=== PATIENT | female | born 1965 | race Caucasian/White ===

== ENCOUNTER 2019-09-11 21:32 | Inpatient (IN) | payer SELFPAY ==
[~2019-09-11] VITALS: Ht 167.6 cm; Wt 93.0 kg
[2019-09-11] MEDS ORDERED: KETOROLAC TROMETHAMINE 30 MG/ML VIAL IV STA (22:08)
[2019-09-11] MEDS ORDERED: ONDANSETRON HCL INJ 2MG/ML 2ML 2 MG/ML VIAL IV STA (22:08)
[2019-09-11] MEDS ORDERED: SODIUM CHLORIDE 0.9% 1000ML 1,000 ML IV ONE (22:15)
[2019-09-11 22:35] LABS: BASOPHILS % 0.3 % (0.0-1.0); EOSINOPHILS # (AUTO) 0.7 (0.0-0.4); EOSINOPHILS % 5.5 % (0.0-6.0); HEMOGLOBIN 14.6 g/dL (12.0-16.0); LYMPHOCYTES # (AUTO) 1.2 (1.0-3.2); LYMPHOCYTES % 9.5 % (18.0-39.1); MEAN CORPUSCULAR HEMOGLOBIN 29.8 pg (28-32); MEAN CORPUSCULAR HGB CONC 32.4 g/dL (31-35); MEAN CORPUSCULAR VOLUME 91.8 fL (81-99); MONOCYTES # (AUTO) 0.7 (0.2-0.8); MONOCYTES % 5.7 % (4.4-11.3); NEUTROPHILS # (AUTO) 9.7 (2.1-6.9); NEUTROPHILS % 78.7 % (38.7-80.0); PLATELET COUNT 225 x10e3/uL (140-360); RED CELL DISTRIBUTION WIDTH 13.6 % (11.7-14.4)
[2019-09-11 22:39] LABS: BILIRUBIN,URINE NEGATIVE (NEGATIVE); CLARITY,URINE CLEAR (CLEAR); COLOR,URINE YELLOW (YELLOW); KETONES,URINE NEGATIVE (NEGATIVE); LEUKOCYTE ESTERASE ,URINE NEGATIVE (NEGATIVE); NITRITE,URINE NEGATIVE (NEGATIVE); PROTEIN,URINE DIPSTICK NEGATIVE (NEGATIVE); URINE UROBILINOGEN 0.2 mg/dL (0.2 - 1)
[2019-09-11 22:51] LABS: ALANINE AMINOTRANSFERASE 16 IU/L (0-55); ALBUMIN 3.8 g/dL (3.5-5.0); ALKALINE PHOSPHATASE 128 IU/L (40-150); AMYLASE 81 U/L (25-125); ANION GAP 10.1 mmol/L (8-16); BLOOD UREA NITROGEN 17 mg/dL (7-26); BUN/CREATININE RATIO 20 (6-25); CALCIUM 9.8 mg/dL (8.4-10.2); CARBON DIOXIDE 30 mmol/L (22-29); CHLORIDE 103 mmol/L (98-107); CREATININE, SERUM 0.85 mg/dL (0.57-1.11); EST GLOMERULAR FILTRATION RATE > 60 ML/MIN (60-); GLUCOSE 128 mg/dL (74-118); LIPASE 40 U/L (8-78); POTASSIUM 4.1 mmol/L (3.5-5.1); SODIUM 139 mmol/L (136-145)
[2019-09-11 23:01] LABS: BACTERIA,URINE FEW /HPF; EPITHELIAL CELLS,URINE FEW /LPF; WBC,URINE (MAN) 0-5 /HPF (0-5)
--- NOTE | 2019-09-11 23:59 | Diagnostic Imaging Report ---
HISTORY: ^ruq pain ^[id number] ^2313 ^Y TECHNIQUE: Selected images from limited abdominal ultrasound provided for INTERPRETATION: COMPARISON: None. FINDINGS: Pancreas: Visualized portions are increased in echotexture suggestive of lipomatosis without mass or ductal dilatation. Liver: Measures 13.5 cm in sagittal plane. The echotexture is normal. No mass in the visualized portions. Portal Vein: Measures 1.2 cm. Proper directional flow on spectral Doppler interrogation. Intrahepatic bile ducts: Normal Gallbladder: Present and contracted. No sludge or gallstones. No pericholecystic fluid. Sonographic Lopez sign is negative. CBD: 0.4 cm. Right Kidney: 9.6 cm in greatest length. The echotexture is normal. There is no evidence for mass. There is no collecting system dilatation or evidence of obstruction. No renal calculi evident. No adjacent free fluid or fluid collections. Visualized IVC and aorta are normal. There is no free fluid. IMPRESSION: 1. Contracted gallbladder without evidence of gallstone or pericholecystic fluid. No biliary ductal dilatation. 2. Increased pancreas echotexture suggestive of lipomatosis. 3. The remainder of the visualized abdomen is normal. Signed by: Dr. Marco Davidson MD on 09/11/2019 11:56 PM
[2019-09-12] VITALS (7 sets, daily range): BP systolic 112–156; BP diastolic 72–91
--- NOTE | 2019-09-12 00:33 | Diagnostic Imaging Report ---
CT Abdomen And Pelvis with Intravenous Contrast INDICATION: Intermittent abdominal pain ^rlq pain ^[id number] ^2355 ^Y TECHNIQUE: Thin collimation axial images obtained from the diaphragm to the level of the pubic symphysis following the uneventful administration of 100 cc of low osmolar, nonionic intravenous contrast. Dose reduction techniques used: Automated exposure control, adjustment of the mAs and/or kVp according to patient size, standardized low-dose protocol, and/or iterative reconstruction technique. RADIATION DOSE: Total DLP: 631.75 mGy*cm Estimated effective dose: (DLP x 0.015 x size factor) mSv CTDIvol has been reviewed. It is below the limits set by the Radiation Protocol Committee (RPC). COMPARISON: Right upper quadrant ultrasound 2316 hours. ABDOMEN FINDINGS: Lung Bases: Clear. The visualized portions of the mediastinum are normal.. Liver: Normal attenuation. No evidence for mass. Gallbladder: Present and is contracted. No biliary ductal dilatation. Pancreas: Normal attenuation without mass or ductal dilatation. Spleen: Normal in size. No evidence of mass.. Adrenal Glands: No evidence for mass. Kidneys: Right: Normal enhancement. No soft tissue mass. No hydronephrosis. Left: Normal enhancement. No soft tissue mass. No hydronephrosis. Lymph Nodes: No lymphadenopathy. Aorta: Normal in diameter Celiac artery: Widely patent and normal in morphology. SMA: Widely patent and normal in morphology. TAYLOR: Patent. PELVIS FINDINGS: Bowel: Stomach: Distended with fluid but otherwise normal. Small Bowel: Circumferential mural thickening and adjacent inflammation of a 10 cm section of ileum in the right lower quadrant. The small bowel proximal to the mural thickening is distended with air and fluid but is not dilated. There is no clear transition point. Large Bowel: Normal in caliber with normal wall thickness. Mild to moderate burden of stool throughout. Appendix: Normal appendix. Bladder: Normal. The uterus is absent. No adnexal mass. Peritoneum/retroperitoneum: Small amount of free fluid. No loculated fluid collection. No free air. Soft tissues: Unremarkable Bones: No focal osseous lesions. IMPRESSION: 10 cm segment of mural thickening and associated inflammation of the ileum in the right lower quadrant. The differential is extensive and includes infectious etiologies as well as inflammatory bowel disease and ischemia. Ischemia is less likely due to patency of the aorta and mesenteric vasculature. There is distention of the small bowel proximal to the mural thickening suggestive of partial small bowel obstruction. No evidence of bowel perforation. Signed by: Dr. Marco Davidson MD on 09/12/2019 12:30 AM
[2019-09-12] MEDS ORDERED: BENZOCAINE/TETRACAINE/BUTAMBEN AERO SPRAY 56 GM CAN ONE (01:00)
[2019-09-12] MEDS ORDERED: MORPHINE SULFATE 2 MG/ML SYR 1ML IV PRN (01:00)
--- OUTSIDE RECORDS SUMMARY | 2019-09-12 01:08 | XMS REPORT ---
Author [facility] Address Unknown Phone Unavailable Care Team Providers Care Textile Screen Maker Name Role Phone Bari EDDY Unavailable Unavailable Problems This patient has no known problems. Allergies, Adverse Reactions, Alerts This patient has no known allergies or adverse reactions. Medications This patient has no known medications. Results Test Description Test Time Test Comments Text Results Atomic Results Result Comments CT ABDOMEN/PELVIS W 2019-09-12 00:21:00 [place] [address] Patient Name: VILLA ESTRADA MR #: [id number] : 1965 Age/Sex: 54/F Req #: [id number] Adm Physician: Ordered by: ADELINE EDDY MD Report #: [id number] Location: ER Room/Bed: Procedure: [id number] CT/CT ABDOMEN/PELVIS W Exam Date: 09/12/19 Exam Time: 5 REPORT STATUS: Signed CT Abdomen And Pelvis with Intravenous Contrast INDICATION: Intermittent abdominal pain rlq pain [id number] 2355 Y TECHNIQUE: Thin collimation axial images obtained from the diaphragm to the level of the pubic symphysis following the uneventful administration of 100 cc of low osmolar, nonionic intravenous contrast. Dose reduction techniques used: Automated exposure control, adjustment of the mAs and/or kVp according to patient size, standardized low-dose protocol, and/or iterative reconstruction technique. RADIATION DOSE: Total DLP: 631.75 mGy*cm Estimated effective dose: (DLP x 0.015 x size factor) mSv CTDIvol has been reviewed. It is below the limits set by the Radiation Protocol Committee (RPC). COMPARISON: Right upper quadrant ultrasound 2316 hours. ABDOMEN FINDINGS: Lung Bases: Clear. The visualized portions of the mediastinum are normal.. Liver: Normal attenuation. No evidence for mass. Gallbladder: Present and is contracted. No biliary ductal dilatation. Pancreas: Normal attenuation without mass or ductal dilatation. Spleen: Normal in size. No evidence of mass.. Adrenal Glands: No evidence for mass. Kidneys: Right: Normal enhancement. No soft tissue mass. No hydronephrosis. Left: Normal enhancement. No soft tissue mass. No hydronephrosis. Lymph Nodes: No lymphadenopathy. Aorta: Normal in diameter Celiac artery: Widely patent and normal in morphology. SMA: Widely patent and normal in morphology. TAYLOR: Patent. PELVIS FINDINGS: Bowel: Stomach: Distended with fluid but otherwise normal. Small Bowel: Circumferential mural thickening and adjacent inflammation of a 10 cm section of ileum in the right lower quadrant. The small bowel proximal to the mural thickening is distended with air and fluid but is not dilated. There is no clear transition point. Large Bowel: Normal in caliber with normal wall thickness. Mild to moderate burden of stool throughout. Appendix: Normal appendix. Bladder: Normal. The uterus is absent. No adnexal mass. Peritoneum/retroperitoneum: Small amount of free fluid. No loculated fluid collection. No free air. Soft tissues: Unremarkable Bones: No focal osseous lesions. IMPRESSION: 10 cm segment of mural thickening and associated inflammation of the ileum in the right lower quadrant. The d ifferential is extensive and includes infectious etiologies as well as inflammatory bowel disease and ischemia. Ischemia is less likely due to patency of the aorta and mesenteric vasculature. There is distention of the small bowel proximal to the mural thickening suggestive of partial small bowel obstruction. No evidence of bowel perforation. Signed by: Dr. Stef Davidson MD on 09/12/2019 12:30 AM Dictated By: STEF DAVIDSON MD Transcribed By: JOE on 09/12/1929 COPY TO: ADELINE EDDY MD GALLBLADDER 2019-09-11 23:54:00 [place] [address] Patient Name: VILLA ESTRADA MR #: [id number] : 1965 Age/Sex: 54/F Req #: [id number] Adm Physician: Ordered by: ADELINE EDDY MD Report #: [id number] Location: ER Room/Bed: Procedure: [id number] US/US GALLBLADDER Exam Date: 09/11/19 Exam Time: 2312 REPORT STATUS: Signed HISTORY: ruq pain [id number] Y TECHNIQUE: Selected images from limited abdominal ultrasound provided for INTERPRETATION: COMPARISON: None. FINDINGS: Pancreas: Visualized portions are increased in echotexture suggestive of lipomatosis without mass or ductal dilatation. Liver: Measures 13.5 cm in sagittal plane. The echotexture is normal. No mass in the visualized portions. Portal Vein: Measures 1.2 cm. Proper directional flow on spectral Doppler interrogation. Intrahepatic bile ducts: Normal Gallbladder: Present and contracted. No sludge or gallstones. No pericholecystic fluid. Sonographic Lopez sign is negative. CBD: 0.4 cm. Right Kidney: 9.6 cm in greatest length. The echotexture is normal. There is no evidence for mass. There is no collecting system dilatation or evidence of obstruction. No renal calculi evident. No adjacent free fluid or fluid collections. Visualized IVC and aorta are normal. There is no free fluid. IMPRESSION: 1. Contrac maritza gallbladder without evidence of gallstone or pericholecystic fluid. No biliary ductal dilatation. 2. Increased pancreas echotexture suggestive of lipomatosis. 3. The remainder of the visualized abdomen is normal. Signed by: Dr. Stef Davidson MD on 09/11/2019 11:56 PM Dictated By: STEF DAVIDSON MD 55 Transcribed By: JOE on 09/11/192355 COPY TO: ADELINE EDDY MD
[2019-09-12] MEDS: PIPER-TAZ 3.375 GM 50 ML IV SCH ×4 (01:59→21:17)
[2019-09-12] MEDS: SODIUM CHLORIDE 0.9% 1000ML 1,000 ML IV SCH ×3 (02:00→16:50)
--- NOTE | 2019-09-12 02:30 | NUR ---
Received patient from ER via stretcher. AAOx3, resp even and unlabored. Noted NGT to R nare connect to LIWS. Minimal amt of dark brown drainage. Denies n/v or pain at this time. Call light within reach and instructed to call for assistance. Patient verbalized understanding.
[2019-09-12] MEDS: METRONIDAZOLE 500MG/NS 100ML 100 ML IV SCH ×5 (03:16→23:10)
[2019-09-12] MEDS ORDERED: ACETAMINOPHEN 325 MG SUPP PR PRN (04:45)
[2019-09-12] MEDS ORDERED: ONDANSETRON HCL INJ 2MG/ML 2ML 2 MG/ML VIAL IV PRN (04:45)
[2019-09-12] MEDS ORDERED: HYDRALAZINE HCL 20 MG/ML VIAL IV PRN (04:45)
[2019-09-12] MEDS ORDERED: IOPAMIDOL 370 MG/ML 200 ML INFUS..BTL INJ ONE (05:30)
[2019-09-12] MEDS ORDERED: SODIUM CHLORIDE 0.9% 50ML 50 ML ONE (05:30)
[2019-09-12] MEDS: PANTOPRAZOLE 40 MG 10ML VIAL IV SCH (08:00)
[2019-09-12] MEDS: ACETAMINOPHEN 1000 MG/100 ML IV PRN (08:00)
--- NOTE | 2019-09-12 12:59 | NUR ---
Handoff report rec'd at bedside for continuity of care.
--- NOTE | 2019-09-12 13:10 | NUR ---
Nutrition Screen Note RD Recommendation for Physician: Initiate a Po diet when medically feasible Plan of Care: RD following, monitoring for tolerance and adequacy Nutrition reason for involvement: Nutrition Risk Trigger - MST Primary Diagnose(s): Colitis, SBO PMH: None Ht:66 in Wt:192lb BMI:31 kg/m2 IBW:130lb +/-10% RD Assessment: (09/12/2019) Chart reviewed. Labs and meds reviewed. Initial encounter with patient. Unable to obtain a nutrition Hx at time of visit from Pt as pt was resting. Pt with a NGT to LIWS - GI output noted. NS infusing at 125ml/hr. ED notes reviewed. Pt without any significant medical Hx prior DIRECTOR CLINICAL OPERATIONS. No H&P dictated at this time. Current Diet: NPO Malnutrition Evaluation (09/12/2019) The patient does not meet criteria for a specified degree of malnutrition at this time. Will re-evaluate at follow-up as appropriate. Diet Education Needs Assessment: Diet education not indicated. Nutrition Care Level: Moderate Signed: Obinna Montoya RD, LD, [facility]
--- NOTE | 2019-09-12 14:15 | Diagnostic Imaging Report ---
EXAM: ABDOMEN-1VIEW (KUB), DATE: 09/12/2019 7:00 PM INDICATION: Colitis. Small bowel obstruction. COMPARISON: None FINDINGS: LINES/TUBES: NG/orogastric tube with distal tip projected on the gastric fundus. BOWEL PATTERN: No evidence for obstruction. SOFT TISSUES: Small phleboliths projected on the lower pelvis.. LUNG BASES: Not included. BONES: No acute findings. IMPRESSION: Nonobstructive bowel gas pattern. Signed by: Dr. Jorge Murillo M.D. on 09/12/2019 2:11 PM
--- NOTE | 2019-09-12 15:33 | Consultation ---
DATE OF CONSULTATION: HISTORY OF PRESENT ILLNESS: Ms. Gardiner is a 54-year-old lady with no significant past medical history, who takes no medication at home. She was in good health except for intermediate chest pain that she has not sought any help for. A day before admission, she started having started 1st intermittent epigastric and right upper and right lower quadrant pain. Over time, progressively become more steady, crampy, felt as if she was in labor, severe, associated with some nausea. No vomiting. No fever. She came to the emergency room and was admitted. She denied any trouble in her bowel movement recently. She denied seeing any blood or melena. She denied any change in bowel habit. No heartburn. No acid reflux. No symptoms of indigestion and no weight loss. In the emergency room, CT scan of the abdomen and pelvic revealed a 10 cm stricture of the terminal ileum, suggestive of either an infectious process or inflammatory process such as inflammatory bowel disease. Ischemia is less likely because all the vessels are patent and no signs of any arthrosclerotic disease, malignancy also a possibility. She was placed on NG suction and she was placed on IV antibiotic and placed on n.p.o. and I was asked to see her for management. She has a strong family history of colon cancer. Her mom had colon cancer. Her father had colon cancer. Also, her sister had ovarian cancer and breast cancer. Her last colonoscopy she reports to be many years ago, she cannot remember. She denied using nonsteroidal anti-inflammatory drugs regularly. PAST MEDICAL HISTORY: Insignificant. She has had hepatitis C in the past, which was treated according to her and resolved. PAST SURGICAL HISTORY: She had hysterectomy in the past and she had some kind of skin surgery underneath her left arm for some skin infection. SOCIAL HISTORY: She does not smoke or drink. HOME MEDICINE: Nil. PHYSICAL EXAMINATION: GENERAL: Awake, alert, oriented, hemodynamically stable. Afebrile. HEENT: Normal sclerae. NECK: Supple. No node or mass. LUNGS: Clear to auscultation. HEART: Regularly irregular rhythm. ABDOMEN: Soft, nontender. No acute sign. No mass, no organomegaly, not distended. CENTRAL NERVOUS SYSTEM: Motor function goes intact. EXTREMITIES: No edema. LABORATORY DATA: White cell count is 12, hemoglobin 14, hematocrit 45, platelets 225. BUN, creatinine normal. Sodium, potassium normal. Calcium 9.8. Liver function normal. Amylase, lipase normal. Albumin normal. Total protein normal. Urinalysis normal. IMPRESSION: Probably inflammatory bowel disease, less likely an infection process, taking into account her clinical presentation, malignancy still need to be ruled out. Today is doing fine on her current management. We will continue her n.p.o. Continue NG suction. Continue the IV antibiotic. Tomorrow, we may try to pull the NG suction, start on liquid diet. She needs to have colonoscopy with terminal ileum intubation and biopsy. We will check stool for calprotectin. We will check her serum reactive protein and we will monitor. As far as the chest pain that she is being complaining about in the past, I will leave it to her primary care to work it up or obtain Cardiology consult. Charissa Figueroa MD RD/MODL /[id number]
[2019-09-13] VITALS (7 sets, daily range): BP systolic 119–138; BP diastolic 66–83
[2019-09-13] MEDS: SODIUM CHLORIDE 0.9% 1000ML 1,000 ML IV SCH ×4 (01:00→19:55)
[2019-09-13 04:27] LABS: BASOPHILS # (AUTO) 0.1 (0.0-0.1); BASOPHILS % 0.5 % (0.0-1.0); EOSINOPHILS # (AUTO) 0.9 (0.0-0.4); EOSINOPHILS % 9.3 % (0.0-6.0); HEMATOCRIT 39.6 % (34.2-44.1); HEMOGLOBIN 13.1 g/dL (12.0-16.0); LYMPHOCYTES # (AUTO) 1.8 (1.0-3.2); LYMPHOCYTES % 19.4 % (18.0-39.1); MEAN CORPUSCULAR HEMOGLOBIN 30.2 pg (28-32); MEAN CORPUSCULAR HGB CONC 33.1 g/dL (31-35); MEAN CORPUSCULAR VOLUME 91.2 fL (81-99); MONOCYTES # (AUTO) 0.7 (0.2-0.8); MONOCYTES % 7.6 % (4.4-11.3); NEUTROPHILS # (AUTO) 5.8 (2.1-6.9); PLATELET COUNT 192 x10e3/uL (140-360); RED BLOOD COUNT 4.34 x10e6/uL (3.6-5.1); RED CELL DISTRIBUTION WIDTH 13.7 % (11.7-14.4)
[2019-09-13 04:30] LABS: ALANINE AMINOTRANSFERASE 12 IU/L (0-55); ALBUMIN 3.3 g/dL (3.5-5.0); ALKALINE PHOSPHATASE 103 IU/L (40-150); BLOOD UREA NITROGEN 14 mg/dL (7-26); BUN/CREATININE RATIO 18 (6-25); CALCIUM 8.9 mg/dL (8.4-10.2); CARBON DIOXIDE 22 mmol/L (22-29); CHLORIDE 108 mmol/L (98-107); CREATININE, SERUM 0.77 mg/dL (0.57-1.11); EST GLOMERULAR FILTRATION RATE > 60 ML/MIN (60-); GLUCOSE 74 mg/dL (74-118); SODIUM 141 mmol/L (136-145)
[2019-09-13] MEDS: PIPER-TAZ 3.375 GM 50 ML IV SCH ×3 (04:30→21:38)
[2019-09-13] MEDS: METRONIDAZOLE 500MG/NS 100ML 100 ML IV SCH ×4 (05:30→23:30)
[2019-09-13] MEDS: ONDANSETRON HCL INJ 2MG/ML 2ML 2 MG/ML VIAL IV PRN (06:22)
[2019-09-13] MEDS: ACETAMINOPHEN 1000 MG/100 ML IV PRN ×3 (06:44→22:20)
--- NOTE | 2019-09-13 06:47 | Diagnostic Imaging Report ---
Two view abdomen series. CPT 98764 CLINICAL HISTORY: Small bowel obstruction TECHNIQUE: Flat and upright views of the abdomen obtained. COMPARISON: Abdomen series 09/12/2019. Medical Devices: Enteric tube terminates in the proximal stomach Bowel: Unremarkable bowel gas pattern. No dilated bowel loops. No air-fluid levels Calcifications: None over the renal shadows or along the expected course of the ureters Organomegaly: None Free air: None Lung bases: Clear Bones: Unremarkable IMPRESSION: Unremarkable bowel gas pattern. Enteric tube as described above. Signed by: Dr. Marco Davidson MD on 09/13/2019 6:43 AM
--- NOTE | 2019-09-13 07:00 | NUR ---
RECEIVED PATIENT RESTING IN BED NO S/S OF DISTRESS. BED LOW, WHEELS LOCKED, SIDE RAILS X2. CALL LIGHT IN REACH WILL CONTINUE TO MONITOR PATIENT.
[2019-09-13] MEDS: LORATADINE 10 MG TAB PO SCH (08:21)
[2019-09-13] MEDS: PANTOPRAZOLE 40 MG 10ML VIAL IV SCH (08:48)
--- NOTE | 2019-09-13 11:15 | NUR ---
PATIENT A/O X3, EVEN RESPIRATIONS ON RA. LUNG SOUNDS CLEAR TO AUSCULTATION. NGT TO RIGHT NARE LIWS. VS STABLE. RIGHT HAND 20 GAUGE IV WITH NS @ 125 CC/HR. PATIENT AMBULATES INDEPENDENTLY. CALL LIGHT IN REACH WILL CONTINUE TO MONITOR PATIENT.
--- NOTE | 2019-09-13 13:02 | Progress Note ---
DATE: SUBJECTIVE: Ms. Gardiner came to the hospital with acute onset of abdominal pain. She was found to have a stricture in her terminal ileum on the CT scan of the abdomen, felt to be either an infectious or inflammatory process such as inflammatory bowel disease. Of course, malignancy also needs to be ruled out. She is still on NG suction, still bringing some fluid into the canister. She is awake, alert, complaining of mild headache. No abdominal discomfort. PHYSICAL EXAMINATION: VITAL SIGNS: She is afebrile. GENERAL: Awake, alert, oriented, hemodynamically stable. ABDOMEN: Soft and nontender. LABORATORY DATA: CBC normal. Comprehensive panel normal. PLAN: My plan today is to continue NG suction, perhaps we will consider to stop it tomorrow. We will check her sedimentation rate, check her calprotectin in the stool, check her serum reactive protein. Continue the antibiotic and we will plan for colonoscopy with terminal ileum viewing and biopsy. Charissa Figueroa MD RD/ZACARIAS /[id number]
[2019-09-13] MEDS: BISACODYL 10 MG SUPP PR SCH (21:38)
[2019-09-14] VITALS (8 sets, daily range): BP systolic 114–138; BP diastolic 57–77
[2019-09-14 03:19] LABS: BASOPHILS % 0.3 % (0.0-1.0); EOSINOPHILS # (AUTO) 0.5 (0.0-0.4); EOSINOPHILS % 4.9 % (0.0-6.0); HEMOGLOBIN 13.1 g/dL (12.0-16.0); LYMPHOCYTES # (AUTO) 1.9 (1.0-3.2); LYMPHOCYTES % 19.8 % (18.0-39.1); MEAN CORPUSCULAR HEMOGLOBIN 30.3 pg (28-32); MEAN CORPUSCULAR HGB CONC 32.8 g/dL (31-35); MEAN CORPUSCULAR VOLUME 92.4 fL (81-99); MONOCYTES # (AUTO) 0.8 (0.2-0.8); MONOCYTES % 8.2 % (4.4-11.3); NEUTROPHILS # (AUTO) 6.4 (2.1-6.9); NEUTROPHILS % 66.6 % (38.7-80.0); PLATELET COUNT 188 x10e3/uL (140-360); RED BLOOD COUNT 4.33 x10e6/uL (3.6-5.1); RED CELL DISTRIBUTION WIDTH 13.2 % (11.7-14.4)
[2019-09-14 03:31] LABS: ANION GAP 16.9 mmol/L (8-16); BLOOD UREA NITROGEN 14 mg/dL (7-26); BUN/CREATININE RATIO 19 (6-25); CALCIUM 8.9 mg/dL (8.4-10.2); CARBON DIOXIDE 19 mmol/L (22-29); CHLORIDE 104 mmol/L (98-107); CREATININE, SERUM 0.73 mg/dL (0.57-1.11); EST GLOMERULAR FILTRATION RATE > 60 ML/MIN (60-); GLUCOSE 69 mg/dL (74-118); POTASSIUM 3.9 mmol/L (3.5-5.1); SODIUM 136 mmol/L (136-145)
[2019-09-14] MEDS: METRONIDAZOLE 500MG/NS 100ML 100 ML IV SCH ×4 (05:26→16:28)
[2019-09-14] MEDS: PIPER-TAZ 3.375 GM 50 ML IV SCH ×3 (05:27→22:00)
[2019-09-14] MEDS ORDERED: METRONIDAZOLE500 MG PO (05:39)
[2019-09-14] MEDS ORDERED: CIPRO500 MG PO (05:39)
[2019-09-14] MEDS ORDERED: ULTRAM 50MG50 MG PO (05:40)
[2019-09-14] MEDS ORDERED: MIRALAX17 GM PO (05:42)
[2019-09-14] MEDS: ONDANSETRON HCL INJ 2MG/ML 2ML 2 MG/ML VIAL IV PRN (06:38)
--- NOTE | 2019-09-14 06:44 | NUR ---
SPOKE LAVERNE MULLINS SMALL MACHINE BINDERY OPERATOR REGARDING PATIENT C/O RIGHT ABDOMINAL PAIN, NAUSEA AND VOMITING. NEW ORDER RECEIVED TO KEEP NGT AND REPEAT CT ABDOMEN/PELVIS WITH CONTRAST.
[2019-09-14] MEDS ORDERED: PROMETHAZINE 12.5MG/ NACL 0.9% 12.5 MG/50 ML BAG IV PRN (06:45)
--- NOTE | 2019-09-14 07:10 | NUR ---
Received patient mid fowlers position, side rails upx2, call light within reach. C/o nausea. Right nare NG tube on intermittent suction draining green drainage. Provided patient with emesis bag. Instructed to use call light for assistance. Will continue to monitor.
[2019-09-14] MEDS: PANTOPRAZOLE 40 MG 10ML VIAL IV SCH (07:39)
[2019-09-14] MEDS: BISACODYL 10 MG SUPP PR SCH (07:39)
--- NOTE | 2019-09-14 07:40 | NUR ---
patient nauseated and vomiting clear phlegm. c/o right abdominal pain radiating to right shoulder. See orders
[2019-09-14] MEDS: ACETAMINOPHEN 1000 MG/100 ML IV PRN (08:05)
[2019-09-14] MEDS: LORATADINE 10 MG TAB PO SCH (09:00)
[2019-09-14] MEDS ORDERED: DIATRIZOATE MEGL/DIATRIZOA SOD 30 ML BTL PO ONE (09:02)
--- NOTE | 2019-09-14 13:30 | NUR ---
NG tube removed as ordered. Patient tolerated well.
--- NOTE | 2019-09-14 13:57 | Diagnostic Imaging Report ---
EXAM: CT Abdomen and Pelvis WITH intravenous contrast INDICATION: Colitis, small bowel obstruction COMPARISON: KUB of 09/12/2019, CT abdomen and pelvis of 09/12/2019 TECHNIQUE: Abdomen and pelvis were scanned utilizing a multidetector helical scanner from the lung base to the pubic symphysis after administration of IV contrast. Coronal and sagittal reformations were obtained. Routine protocol was performed. Scan was performed during portal venous phase. IV CONTRAST: 100mL of Isovue 370 ORAL CONTRAST: Gastrografin RADIATION DOSE: Total DLP: 749.8 mGy*cm Dose modulation, iterative reconstruction, and/or weight based adjustment of the mA/kV was utilized to reduce the radiation dose to as low as reasonably achievable. FINDINGS: LINES/TUBES: Enteric tube terminates in the stomach. LOWER THORAX: Minimal bibasilar dependent subsegmental atelectasis. HEPATOBILIARY: Diffuse hepatic steatosis. No focal liver lesion. No biliary ductal dilation. Unremarkable gallbladder. SPLEEN: No splenomegaly. PANCREAS: No focal masses or ductal dilatation. ADRENALS: No adrenal nodules. KIDNEYS/URETERS: No hydronephrosis, stones, or solid mass lesions. PELVIC ORGANS/BLADDER: Status post hysterectomy. PERITONEUM / RETROPERITONEUM: No free air or fluid. LYMPH NODES: No lymphadenopathy. VESSELS: Unremarkable. GI TRACT: Interval resolution of previously seen thickened loop of small bowel in the right anterior pelvis. There is now no abnormal bowel wall thickening. No bowel obstruction. Normal appendix. BONES AND SOFT TISSUES: No acute osseous injury. No suspicious lytic or blastic lesions. IMPRESSION: Interval resolution of previously seen thickened loop of small bowel in the right anterior pelvis. No bowel obstruction. Diffuse hepatic steatosis. Signed by: Michelle Anderson MD on 09/14/2019 1:53 PM
[2019-09-14] MEDS ORDERED: SODIUM CHLORIDE 0.9% 250ML 250 ML ONE (15:38)
[2019-09-14] MEDS ORDERED: SODIUM CHLORIDE 0.9% 50ML 50 ML ONE (17:43)
[2019-09-14] MEDS ORDERED: IOPAMIDOL 370 MG/ML 200 ML INFUS..BTL INJ ONE (17:43)
--- NOTE | 2019-09-14 18:09 | NUR ---
Per Dr.J Lama patient cleared to discharge
[2019-09-14] MEDS ORDERED: HYDROCODONE/APAP 5MG-325MG TAB PO PRN (18:15)
--- NOTE | 2019-09-14 18:34 | NUR ---
Resting in bed, side rails upx2, call light within reach. AAOX3 to time, person, place. Respirations even and unlabored. Denies nausea. Report to be given to oncoming nurse of patient's status.
--- NOTE | 2019-09-14 19:00 | NUR ---
Completed rounding with morning nurse. Pt alert and orient to name. Pt lying in bed HOB 45 degrees. Denies pain at this time. Will continue to monitor.
[2019-09-14] MEDS ORDERED: CITRATE OF MAGNESIA 300ML BOTTLE PO ONE (19:15)
--- NOTE | 2019-09-14 19:28 | Progress Note ---
DATE: Ms. Gardiner came with an episode of abdominal pain. She was found to have stricture in her terminal ileum, felt either to due to infection or inflammatory bowel disease. She is progressing nicely. She feeling better today. Her NG tube has been stopped. She was started on a diet today. She is awake, alert, oriented, hemodynamically stable. Her only complaint today is excessive watery bowel movement. Her lab test ESR 17. Serum reactive protein pending. Stool calprotectin is pending. Electrolytes; sodium, potassium, BUN and creatinine normal. CBC normal. My plan for her today is to perform a colonoscopy with reviewing of her terminal ileum and to do stool study. She is maintained on Flagyl and Protonix. Charissa Figueroa MD RD/MODL /[id number]
[2019-09-15] VITALS (8 sets, daily range): BP systolic 105–152; BP diastolic 61–90
[2019-09-15 04:53] LABS: BASOPHILS # (AUTO) 0.1 (0.0-0.1); BASOPHILS % 0.7 % (0.0-1.0); EOSINOPHILS # (AUTO) 0.5 (0.0-0.4); HEMOGLOBIN 12.7 g/dL (12.0-16.0); LYMPHOCYTES # (AUTO) 1.7 (1.0-3.2); LYMPHOCYTES % 22.3 % (18.0-39.1); MEAN CORPUSCULAR HEMOGLOBIN 30.3 pg (28-32); MEAN CORPUSCULAR HGB CONC 33.4 g/dL (31-35); MEAN CORPUSCULAR VOLUME 90.7 fL (81-99); MONOCYTES # (AUTO) 0.6 (0.2-0.8); MONOCYTES % 8.4 % (4.4-11.3); NEUTROPHILS # (AUTO) 4.7 (2.1-6.9); NEUTROPHILS % 62.3 % (38.7-80.0); PLATELET COUNT 194 x10e3/uL (140-360); RED BLOOD COUNT 4.19 x10e6/uL (3.6-5.1); RED CELL DISTRIBUTION WIDTH 13.4 % (11.7-14.4)
[2019-09-15 05:14] LABS: ANION GAP 13.3 mmol/L (8-16); BLOOD UREA NITROGEN 8 mg/dL (7-26); BUN/CREATININE RATIO 11 (6-25); CALCIUM 8.9 mg/dL (8.4-10.2); CARBON DIOXIDE 21 mmol/L (22-29); CHLORIDE 108 mmol/L (98-107); CREATININE, SERUM 0.75 mg/dL (0.57-1.11); EST GLOMERULAR FILTRATION RATE > 60 ML/MIN (60-); GLUCOSE 118 mg/dL (74-118); POTASSIUM 3.3 mmol/L (3.5-5.1); SODIUM 139 mmol/L (136-145)
[2019-09-15] MEDS: METRONIDAZOLE 500MG/NS 100ML 100 ML IV SCH ×4 (05:30→16:20)
[2019-09-15] MEDS: PIPER-TAZ 3.375 GM 50 ML IV SCH ×3 (06:33→22:00)
--- NOTE | 2019-09-15 06:50 | NUR ---
Rounded with morning nurse. Pt alert and orient to name. Pt lying in bed HOB 75 degrees. Denies pain at this time.
[2019-09-15] MEDS ORDERED: POTASSIUM CHLORIDE 20 MEQ TAB CR PO STA (08:20)
[2019-09-15] MEDS ORDERED: CITRATE OF MAGNESIA 300ML BOTTLE PO ONE (08:30)
[2019-09-15] MEDS: PANTOPRAZOLE 40 MG 10ML VIAL IV SCH (08:35)
[2019-09-15] MEDS: LORATADINE 10 MG TAB PO SCH (08:35)
[2019-09-15 08:42] LABS: C DIFFICILE TOXIN A&B AMP PROB NEGATIVE (NEGATIVE); WBC,FECAL (FECAL LACTOFERRIN) NEGATIVE (NEGATIVE)
[2019-09-15] MEDS ORDERED: POTASSIUM CHLORIDE 20 MEQ TAB CR PO ONE (12:30)
--- NOTE | 2019-09-15 13:26 | NUR ---
Spoke with Dr. Figueroa regarding plan for colonoscopy and whether pt could have it done as outpatient. Informed Dr. Figueroa of Dr. Lama's note that pt can go home on abx and follow up with colonoscopy in [address] Figueroa states that pt has stricture in her terminal ileum and he's looking for possible tumor vs Crohn's. states that he needs to do colonoscopy while pt is inpatient and if pt has a tumor, she will need surgery and if she has crohn's, she will need to be put on medications. Plan for colonoscopy tomorrow.
--- NOTE | 2019-09-15 15:59 | Progress Note ---
DATE: SUBJECTIVE: Ms. Gardiner came with abdominal pain. She was found to have a stricture in terminal ileum of unclear etiology, responded well to conservative approach. Right now, she is maintained on liquid diet, tolerating it well. OBJECTIVE: GENERAL: She is awake, alert, oriented, afebrile. ABDOMEN: Soft, nontender. LABORATORY DATA: Hemoglobin and hematocrit are normal. White cell count normal. ESR normal. Serum reactive protein pending. Stool for calprotectin pending. Stool for lactoferrin is negative and stool for C diff is negative. ASSESSMENT AND PLAN: She will be going for colonoscopy and hopefully to biopsy to determine the ileum to rule out malignancy tomorrow, then she can be discharged home. Charissa Figueroa MD RD/MODL /[id number]
[2019-09-15] MEDS ORDERED: PEG (High)/E-LYTE SOLN 4,000 ML BTL PO NR (18:00)
--- NOTE | 2019-09-15 19:00 | NUR ---
Rounded with morning nurse. Pt alert and orient to name. Pt lying in bed HOB 90 degrees. Bowel urgency hurried to toilet bowels liquid yellow. Denies pain at this time. Will continue to monitor.
--- NOTE | 2019-09-15 19:05 | NUR ---
Report given to oncoming nurse of patient's status. Resting in bed, side rails upx2, call light within reach. No s/s of acute distress noted.
[2019-09-15] MEDS ORDERED: SODIUM CHLORIDE 0.9% 250ML 250 ML ONE (21:46)
[2019-09-16] VITALS (8 sets, daily range): BP systolic 109–154; BP diastolic 58–90
[2019-09-16] MEDS: METRONIDAZOLE 500MG/NS 100ML 100 ML IV SCH ×5 (05:00→23:08)
[2019-09-16 05:03] LABS: BASOPHILS # (AUTO) 0.1 (0.0-0.1); BASOPHILS % 0.9 % (0.0-1.0); EOSINOPHILS # (AUTO) 0.5 (0.0-0.4); EOSINOPHILS % 6.8 % (0.0-6.0); HEMATOCRIT 38.3 % (34.2-44.1); HEMOGLOBIN 12.7 g/dL (12.0-16.0); LYMPHOCYTES # (AUTO) 1.7 (1.0-3.2); LYMPHOCYTES % 23.2 % (18.0-39.1); MEAN CORPUSCULAR HEMOGLOBIN 29.8 pg (28-32); MEAN CORPUSCULAR HGB CONC 33.2 g/dL (31-35); MEAN CORPUSCULAR VOLUME 89.9 fL (81-99); MONOCYTES # (AUTO) 0.8 (0.2-0.8); NEUTROPHILS # (AUTO) 4.4 (2.1-6.9); NEUTROPHILS % 58.7 % (38.7-80.0); PLATELET COUNT 188 x10e3/uL (140-360); RED BLOOD COUNT 4.26 x10e6/uL (3.6-5.1); RED CELL DISTRIBUTION WIDTH 13.5 % (11.7-14.4)
[2019-09-16 05:26] LABS: ANION GAP 13.2 mmol/L (8-16); BLOOD UREA NITROGEN 6 mg/dL (7-26); BUN/CREATININE RATIO 9 (6-25); CALCIUM 9.1 mg/dL (8.4-10.2); CARBON DIOXIDE 25 mmol/L (22-29); CHLORIDE 105 mmol/L (98-107); EST GLOMERULAR FILTRATION RATE > 60 ML/MIN (60-); GLUCOSE 77 mg/dL (74-118); POTASSIUM 4.2 mmol/L (3.5-5.1); SODIUM 139 mmol/L (136-145)
[2019-09-16] MEDS: PIPER-TAZ 3.375 GM 50 ML IV SCH ×3 (06:00→21:06)
--- NOTE | 2019-09-16 07:20 | NUR ---
PATIENT IN BED RESTING WITH EYES CLOSED, NO RESPIRATORY DISTRESS OBSERVED. BED IN LOWER POSITION, CALL LIGHT AT REACH.
[2019-09-16] MEDS: LORATADINE 10 MG TAB PO SCH (09:00)
[2019-09-16] MEDS: PANTOPRAZOLE 40 MG 10ML VIAL IV SCH (09:08)
--- NOTE | 2019-09-16 11:24 | NUR ---
PATIENT REMAINS NPO FOR A PROCEDURE. C/O COLD AND WARM BLANKET PROVIDED. BED IN LOWER POSITION, CALL LIGHT AT REACH.
[2019-09-16] MEDS ORDERED: FENTANYL CITRATE/PF 100MCG/2 ML INJ ONE (14:18)
[2019-09-16] MEDS ORDERED: MIDAZOLAM HCL 2 MG/2 ML VIAL ONE (14:18)
--- NOTE | 2019-09-16 14:50 | NUR ---
PATIENT OFF UNIT TO OR. WILL BE TRANSFERRED TO MED SURG 1 AFTER THE PROCEDURE. REPORT CALLED AND GIVEN TO RECEIVING NURSE.
--- NOTE | 2019-09-16 14:58 | NUR ---
RECEIVED REPORT FROM MAO IN MED SURG 2 . PT WILL BE TRANSFERRED TO 104 AFTER PT COLONOSCOPY IS COMPLETE. PT IN OR NOW
--- NOTE | 2019-09-16 15:53 | NUR ---
REPORT RECEIVED FROM JAMES IN PACU
--- NOTE | 2019-09-16 16:10 | NUR ---
Follow up Note RD Recommendation for Physician: Recommend GI soft diet when medically appropriate Plan of Care: RD following, monitoring for tolerance and adequacy Nutrition reason for involvement: follow up Primary Diagnose(s): Colitis, SBO PMH: None Ht:66 in Wt:205 (Pt has various weights in chart for this admission ranging from 185-205 lbs) BMI:33.1 kg/m2 IBW:130lb RD Assessment: (09/16/19). Follow up. During interdisciplinary rounds, it was discussed that pt is to have a colonoscopy today. Pt was NPO for colonoscopy and was just advanced to a clear liquid diet. Per documentation, pt consumed 0-25% of liquid diet yesterday. Attempted to speak to pt, but she was sleeping at time of visit; Therefore, prior nutrition information is limited at this time. Will continue to monitor. (09/12/2019) Chart reviewed. Labs and meds reviewed. Initial encounter with patient. Unable to obtain a nutrition Hx at time of visit from Pt as pt was resting. Pt with a NGT to LIWS - GI output noted. NS infusing at 125ml/hr. ED notes reviewed. Pt without any significant medical Hx prior [employer]. No H&P dictated at this time. Current Diet: clear liquid diet Malnutrition Evaluation (09/12/2019) The patient does not meet criteria for a specified degree of malnutrition at this time. Will re-evaluate at follow-up as appropriate. Unable to assess. Diet Education Needs Assessment:Diet education not indicated Nutrition Care Level: Moderate Signed: Sivan Ellsworth, RD, LD
[2019-09-16] MEDS ORDERED: PROPOFOL IV EMULSION 10 MG/ML 20 ML VIAL ONE (18:27)
[2019-09-17 00:59] VITALS: BP 110/75
[2019-09-17 05:25] VITALS: BP 108/68
[2019-09-17] MEDS: PIPER-TAZ 3.375 GM 50 ML IV SCH (05:36)
[2019-09-17] MEDS: METRONIDAZOLE 500MG/NS 100ML 100 ML IV SCH (05:36)
[2019-09-17 05:37] LABS: BASOPHILS # (AUTO) 0.1 (0.0-0.1); EOSINOPHILS # (AUTO) 0.6 (0.0-0.4); HEMATOCRIT 37.3 % (34.2-44.1); HEMOGLOBIN 12.4 g/dL (12.0-16.0); LYMPHOCYTES # (AUTO) 1.8 (1.0-3.2); LYMPHOCYTES % 29.6 % (18.0-39.1); MEAN CORPUSCULAR HGB CONC 33.2 g/dL (31-35); MEAN CORPUSCULAR VOLUME 90.3 fL (81-99); MONOCYTES # (AUTO) 0.7 (0.2-0.8); MONOCYTES % 11.7 % (4.4-11.3); NEUTROPHILS % 48.5 % (38.7-80.0); PLATELET COUNT 181 x10e3/uL (140-360); RED BLOOD COUNT 4.13 x10e6/uL (3.6-5.1); RED CELL DISTRIBUTION WIDTH 13.4 % (11.7-14.4)
[2019-09-17 05:59] LABS: ANION GAP 12.3 mmol/L (8-16); BLOOD UREA NITROGEN 10 mg/dL (7-26); BUN/CREATININE RATIO 13 (6-25); CALCIUM 8.8 mg/dL (8.4-10.2); CARBON DIOXIDE 25 mmol/L (22-29); CHLORIDE 107 mmol/L (98-107); CREATININE, SERUM 0.77 mg/dL (0.57-1.11); EST GLOMERULAR FILTRATION RATE > 60 ML/MIN (60-); GLUCOSE 78 mg/dL (74-118); POTASSIUM 4.3 mmol/L (3.5-5.1); SODIUM 140 mmol/L (136-145)
[2019-09-17 07:43] VITALS: BP 109/83
[2019-09-17] MEDS: LORATADINE 10 MG TAB PO SCH (07:45)
[2019-09-17] MEDS: PANTOPRAZOLE 40 MG 10ML VIAL IV SCH (07:45)
[2019-09-17 08:01] VITALS: BP 109/83
--- NOTE | 2019-09-17 11:30 | NUR ---
DISCHARGE INSTRUCTIONS AND PRESCRIPTIONS GIVEN PT VERBALIZED UNDERSTANDING IV DC PRESSURE DRESSING APPLIED AND TAPED PT IS NOW OFF UNIT TO HOME
--- NOTE | 2019-09-18 04:36 | Discharge Summary ---
ADMISSION DIAGNOSES: Partial small bowel obstruction, colitis, obesity with a BMI of 31. DISCHARGE DIAGNOSES: Partial small bowel obstruction, colitis, obesity with a BMI of 31, rule out Clostridium difficile. HISTORY: None. SURGICAL HISTORY: Hysterectomy, left arm I and D, tubal ligation. FAMILY HISTORY: The patient's aunt and uncle have diabetes. The patient's mother, father, grandfather, and sister have cancer. The patient's grandmother had a stroke. SOCIAL HISTORY: Noncontributory. HOSPITAL COURSE: A 54-year-old female admits with complaints of intermittent dull right upper quadrant and right lower quadrant pain, that began 03:00 a.m. yesterday. Around noon, the pain became much stronger. She has associated nausea, but denies vomiting, fever, and diarrhea. She had a soft BM on the day prior to admission. On admission, ultrasound of the gallbladder was done, which showed contracted gallbladder without evidence of gallstones or pericholecystic fluid. No biliary ductal dilation. CT of the abdomen and pelvis showed a 10 cm segment of mural thickening and associated inflammation of the ileum in the right lower quadrant. Differential is extensive and includes infectious etiologies as well as inflammatory bowel disease and ischemia. There is distention of the small bowel proximal to the mural thickening suggestive of partial small bowel obstruction. No evidence of bowel perforation. A KUB was done the following day, which showed nonobstructive bowel gas pattern. The patient's pain was decreased, so the NG tube was going to be removed, but prior to removal, the patient attempted to get out of the bed and she said she felt like something ripped in her abdomen, so a repeat CT of the abdomen and pelvis was done, that showed interval resolution of previously seen thickened loops of small bowel in the right anterior pelvis. No bowel obstruction. Diffuse hepatic steatosis. Surgery and GI were following. Surgery said the patient can follow up outpatient for gallbladder removal. GI fit the patient for colonoscopy, which found a colon polyp and inflammation. She will follow up with GI in about 3 weeks for biopsy results and possibly another colonoscopy. At time of discharge, the patient is feeling much better and tolerating a regular diet. She will discharge home with 5 more days of Cipro and Flagyl as well as MiraLAX and tramadol for pain. The patient understands discharge instructions and agrees to plan. Vital signs stable, the patient afebrile. Dictated by Haven M Jhoan, NON DESTRUCTIVE TESTING SUPERVISOR MD LUIS Bernardo/MODL /[id number]
== END 2019-09-17 11:20 | disposition home or self-care (01) | DRG 389 ==
LOC: ER 21:32 → ERHOLD 09-12 01:02 → MED/SURG2 09-12 02:26 → MED/SURG 09-16 15:38
PROVIDERS: ADMIT Internal Medicine; ATTEND Internal Medicine
PROC: 0DBM8ZX Excision of Descending Colon, Via Natural or Artificial Opening Endoscopic, Diagnostic (ICD-10-PCS; principal; 2019-09-16 15:11)
DX: K56.690 Other partial intestinal obstruction (principal); A09 Infectious gastroenteritis and colitis, unspecified; K64.8 Other hemorrhoids; E66.9 Obesity, unspecified; E87.6 Hypokalemia; R93.5 Abnormal findings on diagnostic imaging of other abdominal regions, including retroperitoneum; K63.9 Disease of intestine, unspecified; Z82.49 Family history of ischemic heart disease and other diseases of the circulatory system; Z83.3 Family history of diabetes mellitus; Z82.3 Family history of stroke; Z68.31 Body mass index [BMI] 31.0-31.9, adult; Z80.0 Family history of malignant neoplasm of digestive organs; Z80.3 Family history of malignant neoplasm of breast; Z80.41 Family history of malignant neoplasm of ovary; K76.0 Fatty (change of) liver, not elsewhere classified
CPT/HCPCS: 36415; 45380; 74018; 74019; 74177; 76705; 80048; 80053; 81001; 82150; 83630; 83690; 83993; 85025; 85651; 86140; 87045; 87177; 87328; 87493; 88305; 93005; 99284; J1885; J2250; J2270; J2405; J2543; J2550; J3010; J7030; J7050; Q9967

== ENCOUNTER 2022-06-03 20:34 | Emergency (ER) | payer SELFPAY ==
[~2022-06-03] VITALS: Ht 167.6 cm; Wt 83.0 kg
[~2022-06-03 20:34] MED LIST: CIPRO500 MG PO; METRONIDAZOLE500 MG PO; MIRALAX17 GM PO; ULTRAM 50MG50 MG PO
[2022-06-03] MEDS ORDERED: ONDANSETRON HCL INJ 2MG/ML 2ML 2 MG/ML VIAL IV STA (21:39)
[2022-06-03 21:49] LABS: BASOPHILS % 0.5 % (0.0-1.0); EOSINOPHILS % 0.5 % (0.0-6.0); HEMATOCRIT 42.3 % (34.2-44.1); HEMOGLOBIN 13.9 g/dL (12.0-16.0); LYMPHOCYTES # (AUTO) 1.3 (1.0-3.2); LYMPHOCYTES % 16.9 % (18.0-39.1); MEAN CORPUSCULAR HEMOGLOBIN 30.1 pg (28-32); MEAN CORPUSCULAR HGB CONC 32.9 g/dL (31-35); MEAN CORPUSCULAR VOLUME 91.6 fL (81-99); MONOCYTES # (AUTO) 0.5 (0.2-0.8); MONOCYTES % 6.2 % (4.4-11.3); NEUTROPHILS # (AUTO) 5.6 (2.1-6.9); NEUTROPHILS % 75.6 % (38.7-80.0); PLATELET COUNT 232 x10e3/uL (140-360); RED BLOOD COUNT 4.62 x10e6/uL (3.6-5.1); RED CELL DISTRIBUTION WIDTH 13.7 % (11.7-14.4)
[2022-06-03 22:09] LABS: ALBUMIN 3.6 g/dL (3.5-5.0); ALBUMIN/GLOBULIN RATIO 0.9 (0.8-2.0); ANION GAP 14.5 mmol/L (8-16); CALCIUM 9.2 mg/dL (8.4-10.2); CREATININE, SERUM 0.89 mg/dL (0.57-1.11); POTASSIUM 3.5 mmol/L (3.5-5.1)
[2022-06-03 22:16] LABS: CREATINE KINASE MB 1.2 ng/mL (0-5.0)
[2022-06-03 23:30] VITALS: BP 136/93
== END 2022-06-03 23:31 | disposition home or self-care (01) ==
LOC: ER 20:38
DX: R10.13 Epigastric pain (principal); K29.70 Gastritis, unspecified, without bleeding; K21.9 Gastro-esophageal reflux disease without esophagitis; R20.2 Paresthesia of skin
CPT/HCPCS: 36415; 80053; 82550; 82553; 83690; 84484; 85025; 93005; 99283; C9113; J2405

== ENCOUNTER 2023-11-11 19:30 | Emergency (ER) | payer SELFPAY ==
[~2023-11-11] VITALS: Ht 167.6 cm; Wt 83.0 kg
[2023-11-11] MEDS ORDERED: ONDANSETRON HCL INJ 2MG/ML 2ML 2 MG/ML VIAL IV STA (20:03)
[2023-11-11] MEDS ORDERED: SODIUM CHLORIDE 0.9% 1000ML 1,000 ML IV SCH (20:15)
[2023-11-11 20:30] LABS: BASOPHILS % 0.1 % (0.0-1.0); EOSINOPHILS % 0.1 % (0.0-6.0); HEMATOCRIT 43.5 % (34.2-44.1); HEMOGLOBIN 14.5 g/dL (12.0-16.0); LYMPHOCYTES % 14.9 % (18.0-39.1); MEAN CORPUSCULAR HEMOGLOBIN 30.9 pg (28-32); MEAN CORPUSCULAR HGB CONC 33.3 g/dL (31-35); MEAN CORPUSCULAR VOLUME 92.8 fL (81-99); MONOCYTES # (AUTO) 0.4 (0.2-0.8); MONOCYTES % 5.4 % (4.4-11.3); NEUTROPHILS # (AUTO) 5.3 (2.1-6.9); NEUTROPHILS % 79.2 % (38.7-80.0); PLATELET COUNT 195 x10e3/uL (140-360); RED BLOOD COUNT 4.69 x10e6/uL (3.6-5.1); RED CELL DISTRIBUTION WIDTH 12.9 % (11.7-14.4); WHITE BLOOD COUNT 6.71 x10e3/uL (4.8-10.8)
[2023-11-11 20:51] LABS: ALBUMIN 4.2 g/dL (3.5-5.0); ALBUMIN/GLOBULIN RATIO 1.1 (0.8-2.0); ANION GAP 14.1 mmol/L (8-16); BILIRUBIN,TOTAL 0.5 mg/dL (0.2-1.2); CALCIUM 9.7 mg/dL (8.4-10.2); CREATININE, SERUM 0.81 mg/dL (0.57-1.11); POTASSIUM 4.1 mmol/L (3.5-5.1)
[2023-11-11 20:57] LABS: TROPONIN I 0.008 ng/mL (0-0.300)
[2023-11-11] MEDS ORDERED: SODIUM CHLORIDE 0.9% 1000ML 1,000 ML IV ONE (21:00)
[2023-11-11 21:23] LABS: BILIRUBIN,URINE NEGATIVE (NEGATIVE); CLARITY,URINE CLEAR (CLEAR); COLOR,URINE YELLOW (YELLOW); GLUCOSE, URINE NEGATIVE (NEGATIVE); KETONES,URINE 1+ (NEGATIVE); LEUKOCYTE ESTERASE ,URINE NEGATIVE (NEGATIVE); NITRITE,URINE NEGATIVE (NEGATIVE); PH,URINE 7 (5 - 7); PROTEIN,URINE DIPSTICK NEGATIVE (NEGATIVE); URINE UROBILINOGEN 0.2 mg/dL (0.2 - 1)
[2023-11-11 21:30] LABS: BACTERIA,URINE MODERATE /HPF; EPITHELIAL CELLS,URINE MODERATE /LPF; WBC,URINE (MAN) 0-5 /HPF (0-5)
[2023-11-11] MEDS ORDERED: ONDANSETRON ODT4 MG SL (21:48)
[2023-11-11] MEDS ORDERED: PANTOPRAZOLE SO40 MG PO (21:48)
[2023-11-11 21:49] VITALS: BP 148/88; PULSE 80; RESP 15; TEMP 98.8; O2SAT 100
== END 2023-11-11 21:57 | disposition home or self-care (01) ==
LOC: ER 19:57
DX: R11.2 Nausea with vomiting, unspecified (principal); A08.4 Viral intestinal infection, unspecified; R10.10 Upper abdominal pain, unspecified; Z11.52 Encounter for screening for COVID-19; R94.31 Abnormal electrocardiogram [ECG] [EKG]
CPT/HCPCS: 36415; 80053; 81001; 83690; 84484; 85025; 87400; 93005; 99284; C9113; J2405; J7030; U0002